=== PATIENT | female | born 1965 | race Caucasian/White ===

== ENCOUNTER → 2017-12-04 10:36 | Outpatient (CLI) | payer OTHER, SELFPAY ==
--- NOTE | 2017-12-04 | DI.MG.S_ITS ---
BILATERAL DIGITAL SCREENING MAMMOGRAM 3D/2D WITH CAD WITH AUGMENTATION: 12/04/2017 CLINICAL: Routine screening. Comparison is made to exams dated: 03/12/2011 mammogram and 04/29/2007 mammogram - [facility]. There are scattered fibroglandular elements in both breasts. Current study was also evaluated with a Computer Aided Detection (CAD) system. Bilateral breast implants appear stable and intact. No significant masses, calcifications, or other findings are seen in either breast. There has been no significant interval change. IMPRESSION: BENIGN There is no mammographic evidence of malignancy. A 1 year screening mammogram is recommended. This exam was interpreted at Station ID: [id number]. NOTE: For mammograms, a report in lay terms will be sent to the patient. Approximately 15% of breast malignancies will not be visualized mammographically. In the management of a palpable breast mass, a negative mammogram must not discourage biopsy of a clinically suspicious lesion. Electronically Signed By: Trevon Layne M.D. ecl/:12/04/2017 20:07:21 letter sent: Normal Exam ACR BI-RADS Category 2: Benign Finding(s) [id number]
== END ==
PROVIDERS: Family Provider Family Medicine; PCP Family Medicine; Visit Provider Family Medicine
DX: Z12.31 Encounter for screening mammogram for malignant neoplasm of breast (principal)
CPT/HCPCS: 77063; 77067

== ENCOUNTER → 2018-10-29 08:44 | Outpatient (CLI) | payer OTHER, SELFPAY ==
--- NOTE | 2018-10-29 | DI.US.S_ITS ---
PROCEDURE: US PELVIC COMPLETE INDICATIONS: ENLARGED LEFT OVARIAN CYST ON PHYSICAL EXAM TECHNIQUE: Real-time scanning was performed of the pelvic organs, with image documentation. Additional endovaginal scanning was necessary due to incomplete visualization of the adnexal and endometrial structures by transabdominal scanning. COMPARISON: [facility], US, PELVIC COMPLETE, 08/18/2017, 17:05. FINDINGS: Transabdominal scanning: Limited scanning through the kidneys shows no hydronephrosis. There is moderate amount of somewhat complex free pelvic fluid. Endovaginal scanning: Uterus: Uterus is retroverted measuring 7.6 x 4.7 x 5.3 cm. The endometrium appears heterogeneous and measures 8.2 mm in combined thickness. Ovaries: Right ovary measures 2.1 x 1.7 x 1.6 cm. Left ovary measures 3.1 x 1.5 x 1.73 m. A 1.3 cm simple cyst is noted in the right ovary. There is a 1.7 cm complex cyst in the left ovary. IMPRESSION: 1. Heterogeneous endometrium measuring 8.3 mm. Please correlate with the patient's menopausal status. 2. A 1.7 cm complex cyst in the left ovary. Recommend short-term followup ultrasound in 6 weeks. 3. Moderate amount of somewhat complex free fluid in pelvis. This can be better at that same time on followup ultrasound. Alternatively, CT may be obtained for further evaluation. Dictated by: Scar Rios M.D. on 10/29/2018 at 11:20 Approved by: Scar Rios M.D. on 10/29/2018 at 11:26
== END ==
PROVIDERS: PCP Family Medicine; Visit Provider Internal Medicine
DX: N83.292 Other ovarian cyst, left side (principal); N83.291 Other ovarian cyst, right side
CPT/HCPCS: 76830; 76856

== ENCOUNTER 2018-11-04 07:24 | Day surgery (SDC) | payer OTHER, SELFPAY ==
[2018-10-28 12:11] VITALS: BMI 27.6
[2018-11-04] VITALS (7 sets, daily range): BP systolic 103–120; BP diastolic 61–84; PULSE 80–90; RESP 13–18; TEMP 36.4–36.6; O2SAT 95–100; BMI 27.6
--- NOTE | 2018-11-04 08:10 | PM.PREOP ---
Pre-operative Note Interval Note History & Physical reviewed/Exam performed by Physician: Yes Changes to H&P: No
[2018-11-04] MEDS: LACTATED RINGERS 1,000 ML 42 ML IV ×2 (08:13→09:53)
--- NOTE | 2018-11-04 08:44 | SUR.PREOP ---
Block start time [0826 ] . Monitoring initiated and maintained throughout procedure. Oxygen and medications given per anesthesiologist instructions. Patient remained stable throughout procedure, no adverse reactions noted. Block end time [0833].
[2018-11-04] MEDS: MIDAZOLAM 2 MG/2 ML VIAL IV (08:49)
[2018-11-04] MEDS: fentaNYL 100 MCG/2 ML INJ 50 MCG IV (08:49)
[2018-11-04] MEDS: CEFAZOLIN 2 GM/100 ML FROZ.PIGGY IV (08:50)
--- NOTE | 2018-11-04 08:55 | SUR.PREOP ---
Pt was brought to Block room 5 for nerve block procedure. She was placed on monitor and noted to have stable vitals, HRR and in SR. Sats remained in the upper 90 percentile. Unfortunately no strip was obtained as aide inadvertently cleared the monitor before one could be obtained
--- NOTE | 2018-11-04 09:31 | SUR.OPER ---
Lateral on morales bag over padded OR bed, head on pillow, gel axillary roll in place, bottom leg bent with gel pad under knee to foot, upper leg straight and supported with blankets. Upper arm supported by pillows and secured over bottom arm to padded arm board. Safety belt at hip, tape over blanket lower legs.
[2018-11-04] MEDS: BUPIVACAINE 0.25% W/ EPI 30 ML VIAL INJ (10:43)
--- NOTE | 2018-11-04 11:33 | PM.OP.1 ---
Operative Date/Time/Diagnoses Date of procedure: 11/04/18 Time of procedure: 09:00 Pre-op diagnosis: Right ankle instability M25.371 Hypermobility ankle joint M35.7 Post-op diagnosis: other (1. Right ankle instability 2. Right ankle peroneus brevis tear 3. Peroneal tendinosis) Procedure & Clinicians Procedure: 1. Secondary repair collateral ankle ligaments, both, right CPT code 92166 2. Debridement and repair peroneus brevis tendon tear CPT code 25242 Indications: Patient is a 53-year-old female with chronic right ankle lateral ligament instability and marked subtalar inversion on stress examination under fluoroscopy. She has an absent calcaneal fibular ligament on MRI. She has been symptomatic and this has not resolved despite conservative treatment with bracing, anti-inflammatories, shoe modifications, physical therapy, time. She has hyperlaxity and an increased ligamentous of flexibility score. She has been indicated for secondary repair and reconstruction of the lateral ankle ligaments with allograft due to her hyperlaxity. The risks benefits and alternatives to the procedure were discussed with the patient including incomplete relief of pain, instability, infection, DVT, pulmonary embolism, slow wound healing, generalized dissatisfaction with the procedure, cardiopulmonary complications including stroke, paralysis, . The patient elected to proceed and consent was signed. Surgeon: Brigid Baig Director Of [employer]: Breann Vargas Anesthesia Type: General, Peripheral nerve block and Local Operative Notes Findings: The CFL was absent. Anterior talar fibular ligament was in tact was some attenuation. Peroneal tendon width were inspected. There is mild tenosynovitis around both the brevis and the longus. The longus was intact. The peroneus brevis was noted to have a backside tear and flattening. This was debrided and then tubularized. Tenosynovectomy was performed. The lateral ankle ligaments were reconstructed using the allograft tendon and fixed to the talus with a 4.75 interference screw and then through drill holes in the fibula and into the calcaneus with another 4.75 bio tenodesis screw. At the end of the procedure the patient was noted to have stable anterior drawer and talar tilt and markedly improved and talar tilt from preoperative. Closure Type: primary Specimen(s): none sent Prosthetic devices, grafts, tissues, transplants, or devices: allograft tendon measuring 4 mm x 21 cm Arthrex 4.75 bio tenodesis screws x2 Applied: catheter Estimated Blood Loss (mL): 5 Blood products transfused: none Tourniquet time (min): 69 Procedure in detail: The patient was seen in the preop holding area her site of surgery was confirmed and consent was again gone over in detail. All questions were answered. The site of surgery was marked. The patient was then taken to the block room and a preoperative block for postop pain control was placed by the anesthesia team. The patient was then brought to the operating room and general anesthesia was administered. Patient was then positioned in a lateral position on the beanbag. All bony prominences were padded. An SCD was was placed on the non operative leg. An axillary roll was placed. The patient's operative extremity was prepped and draped in the standard sterile fashion. A 3 step prep was performed with alcohol, Hibiclens sponge and then chlorhexidine prep. A formal time-out was performed confirming the patient, side, site of surgery, consent, administration of appropriate preoperative antibiotics. All were in agreement. An Esmarch was used and the tourniquet was elevated to 250 mm of mercury and stayed there for 69 minutes. A curvilinear incision was made just off the posterior border of the fibula curving anteriorly distally. The flaps were carefully elevated and an extra periosteal dissection was taken over the fibula distally. Peroneal tendon repair: The peroneal tendon sheath was opened just off the back of the fibula with a cuff left to repair. The tendons were inspected. The peroneus brevis had a flattened appearance with a backside longitudinal tear and some tenosynovitis. This was debrided using the tenotomy scissors and then repaired with a 2 0 Vicryl tubularizing stitch. Tenosynovectomy was completed. Lateral ligament reconstruction: Attention was then turned to the lateral ligaments. The ATFL was noted to be in tact anteriorly with is some thinning a anterior arthrotomy was made to inspect the joint. There was small amount of osteophytes off the distal tibia. The talar cartilage was noted to be intact. Next the CFL was inspected this was noted to be deficient and the patient had market positive talar tilt on manual visual examination. Due to the patient's global hyperlaxity allograft was felt to be needed for reconstruction. The allograft tendon was taken out of the freezer and thawed. This was 210 mm long and measured approximately 4 mm and a easily fighting through the 4 and 4.5 mm sizers. The insertion of the ATFL was identified on the talus just off the articular surface and this was just anterior and superior to the remaining anterior talofibular tendon that was left in situ. A guide pin was placed and checked on fluoroscopy to make sure that this was clear of the joint. This was then over drilled to 20 mm with a 5 mm drill. Next a fibular drill hole was made using 24.5 mm converging tunnels in the anterior to posterior direction at the insertions of the ATFL and CFL respectively. Again the ATFL tunnel was chosen just superior to the remaining ligament that was left in situ. The allograft tendon was then secured into the talus hole using a 4.75 bio tenodesis screw and then was brought through the fibular drill holes using the Nitinol loop. Once this was completed the calcaneal fibular ligament insertion on the calcaneus was identified and a guide pin was placed from lateral to medial and exited out medially. This was overdrilled with the 5 mm Reamer to the medial wall. The tendon was then marked where it would enter the calcaneal drill hole and then marked 17 mm distal to this. The tendon was then cut and a fiber loop was used for a whip stitch between the 2 marker wall. The allograft was then passed through the calcaneal hole and out medially on the Beath pin. The construct was then tensioned in neutral dorsiflexion and slight eversion and secured with another 4.75 bio tenodesis screw. This provided excellent fixation and eliminated the talar tilt laxity. The joint was then irrigated and the tourniquet released. Hemostasis was achieved. The extensor retinaculum was then repaired over the fibular periosteum and the joint was closed. The peroneal sheath was closed with 2 O Vicryl suture which was also used subcutaneously and then the subcu layer with 4 0 Monocryl in the skin with nylon 3 0. A sterile dressing was placed with Xeroform, gauze and Webril. A well-padded stirrup splint was placed. Additional 15 cc of 0.25% Marcaine with epinephrine was injected. The patient was then woken from anesthesia and taken to the recovery room in good condition. There no immediate complications from this procedure. Complications: none Condition: stable Disposition: PACU Plan for aftercare: The patient will be nonweightbearing in the lower extremity splint. She will keep this clean and dry until follow-up. She will start aspirin 325 mg b.i.d. on postop day 1. She will follow up in 2 weeks in the clinic at that time she will be placed to a boot and start 25% weight-bearing and physical therapy with no inversion.
== END 2018-11-04 12:24 | disposition home or self-care (01) ==
PROVIDERS: PCP Family Medicine; Visit Provider Orthopaedic Surgery Foot and Ankle Surgery
PROC: (CPT 27698; principal; 2018-11-04 08:45)
DX: M25.371 Other instability, right ankle (principal); M35.7 Hypermobility syndrome; S96.811A Strain of other specified muscles and tendons at ankle and foot level, right foot, initial encounter; G89.18 Other acute postprocedural pain
CPT/HCPCS: 27698; 27675; 64445; 64450; J0690; J1100; J2250; J2405; J2704; J3010

== ENCOUNTER → 2018-12-08 13:32 | Outpatient (CLI) | payer OTHER, SELFPAY ==
--- NOTE | 2018-12-08 | DI.US.S_ITS ---
PROCEDURE: US PELVIC COMPLETE INDICATIONS: LEFT OVARIAN CYST TECHNIQUE: Real-time scanning was performed of the pelvic organs, with image documentation. Additional endovaginal scanning was necessary due to incomplete visualization of the adnexal and endometrial structures by transabdominal scanning. COMPARISON: [facility], , PELVIC COMPLETE, 08/18/2017, 17:05. [facility], , PELVIC COMPLETE, 10/29/2018, 9:07. FINDINGS: Transabdominal scanning: Limited scanning through the kidneys shows no hydronephrosis. No pathologic free abdominal or pelvic fluid. Endovaginal scanning: Uterus: Uterus is normal in size at 6.6 x 5.2 x 4.1 cm. The endometrium measures 11.0 mm in combined thickness and is diffusely heterogeneous.. Ovaries: Ovaries normal size measuring 3.1 x 2.3 x 2.3 cm and the right and 3.7 x 2.7 x 1.4 cm and the left. 2 mildly complex cyst involving the right ovary, largest measuring up to 1.5 cm. 2 mildly complex cyst also mild left ovary, largest measuring up to 1.3 cm. IMPRESSION: Interval resolution of previously visualized left complex ovarian cyst and today's study demonstrating small bilateral complex ovarian cysts. Given the patient's postmenopausal status, short term followup ultrasound in 6-12 weeks is recommended. Thickened and heterogeneous appearance of the endometrial complex in this patient with prior endometrial ablation; however given the increased thickness, endometrial neoplastic process cannot be excluded and clinical correlation is recommended. Consider endometrial biopsy. Dictated by: Mukesh HANLEY Interpreted: Kindra Benito MD on 12/09/2018 at 8:36 Approved by: Kindra Benito MD, PhD on 12/09/2018 at 10:34
== END ==
PROVIDERS: PCP Family Medicine; Visit Provider Family Medicine
DX: N83.202 Unspecified ovarian cyst, left side (principal); N83.201 Unspecified ovarian cyst, right side; R93.89 Abnormal findings on diagnostic imaging of other specified body structures
CPT/HCPCS: 76830; 76856

== ENCOUNTER → 2019-10-26 07:22 | Outpatient (CLI) | payer OTHER, SELFPAY ==
[2019-10-26 09:04] LABS: Add Manual Diff / Slide Review NO; Basophils Absolute Auto 0 /uL (0-100); Basophils Percent Auto 0.5 % (0-2); Eosinophils Absolute Auto 100 /uL (0-450); Eosinophils Percent Auto 1.5 % (2-4); Hematocrit 41.1 % (36-46); Lymphocytes Absolute Auto 1200 /uL (1100-4500); Lymphocytes Percent Auto 28.8 % (25-40); Mean Corpuscular HGB Conc 34.1 % (30-36); Monocytes Absolute Auto 400 /uL (0-900); Neutrophils Absolute Auto 2600 /uL (1500-7000); Neutrophils Percent Auto 59.2 % (50-75); Platelet Count 329 X10^3/uL (150-400); Red Blood Cell Count 4.67 X10^6/uL (4.0-5.2); Red Cell Distribution Width 13.6 % (11.6-14.8); White Blood Cell Count 4.3 X10^3/uL (4.5-11.0)
[2019-10-26 09:22] LABS: Alanine Aminotransferase 23 IU/L (<35); Albumin 4.1 g/dL (3.5-5.0); Albumin Globulin Ratio 1.5 (1.0-2.8); Alkaline Phosphatase 89 U/L (38-126); Aspartate Aminotransferase 27 IU/L (14-36); BUN Creatinine Ratio 13.8 (6-22); Bilirubin Total 0.4 mg/dL (0.2-1.3); Blood Urea Nitrogen 9 mg/dL (7-17); Calcium 9.4 mg/dL (8.4-10.2); Carbon Dioxide 23 mmol/L (22-32); Chloride 105 mmol/L (98-107); Cholesterol 220 mg/dL (140-199); Estimated Glomerular Filt Rate > 60.0 mL/min (>60); Globulin 2.8 g/dL (1.7-4.1); Glucose 91 mg/dL (70-100); HDL Cholesterol 54 mg/dL (40-60); HEMOLYSIS < 15 (0-50); LDL Cholesterol Calculated 140 mg/dL (<100); Potassium 4.5 mmol/L (3.4-5.1); Sodium 137 mmol/L (137-145); Total Protein 6.9 g/dL (6.3-8.2); Triglycerides 130 mg/dL (35-150)
[2019-10-26 09:48] LABS: Thyroid Stimulating Hormone 1.51 uIU/mL (0.47-4.68)
== END ==
PROVIDERS: PCP Family Medicine; Referring Provider Naturopath; Visit Provider Naturopath
DX: Z00.00 Encounter for general adult medical examination without abnormal findings (principal); F41.9 Anxiety disorder, unspecified
CPT/HCPCS: 36415; 80053; 80061; 84443; 85025

== ENCOUNTER → 2019-11-12 13:23 | Outpatient (CLI) | payer OTHER, SELFPAY ==
--- NOTE | 2019-11-12 | DI.CT.S_ITS ---
PROCEDURE: CT ABDOMEN PELVIS WO/W CON INDICATIONS: Gross hematuria. Right flank and groin pain TECHNIQUE: Optional 5 mm thick noncontrast images acquired from the diaphragm to the symphysis pubis. After the administration of intravenous contrast, 5 mm thick images acquired from the diaphragm to the symphysis pubis after a 10-minute delay. 2 mm thick coronal and sagittal reformats were then performed of the kidneys and ureters. For radiation dose reduction, the following was used: automated exposure control, adjustment of mA and/or kV according to patient size. COMPARISON: None. FINDINGS: Image quality: Excellent. Lung bases: 5 mm right lung base nodule. Lung bases are otherwise clear. Heart size is normal. Urinary system: Both kidneys are normal in size, without hydronephrosis or nephrolithiasis on pre-contrast images. No perinephric fat stranding. There is normal bilateral renal enhancement. Renal calyces appear normal in morphology when filled with contrast. Opacified portions of both ureters demonstrate normal caliber. Bladder wall thickness is normal. No calcified bladder stones. Other solid organs: Liver is normal in size and enhancement. Gallbladder is surgically absent. Biliary system is non dilated. Pancreas enhances normally. Spleen is normal in size and enhancement. No adrenal nodules. Peritoneum and bowel: Bowel loops demonstrate normal wall thickness and caliber. No free fluid or air. Status post appendectomy. Nodes and vessels: No retroperitoneal or mesenteric adenopathy by size criteria. Aorta and inferior vena cava are normal in size. Abdominal wall: No ventral hernias. There is a very small fat-containing umbilical hernia without acute inflammation. Pelvis: No pathologic free pelvic fluid. No inguinal hernias or adenopathy. Reproductive organs appear unremarkable as visualized. Bones: No suspicious bony lesions. No vertebral body compression fractures. IMPRESSION: 1. CT abdomen and pelvis without acute abnormalities to explain patient's right-sided flank pain and hematuria. Specifically, no evidence for urolithiasis or obstructive uropathy and unremarkable appearance of the upper and lower urinary collecting system. 2. Status post cholecystectomy and appendectomy. Dictated by: Naveed Mcmahan M.D. on 11/12/2019 at 15:57 Approved by: Naveed Mcmahan M.D. on 11/12/2019 at 16:04
== END ==
PROVIDERS: PCP Family Medicine; Referring Provider Family Medicine; Visit Provider Family Medicine
DX: R31.0 Gross hematuria (principal); R10.9 Unspecified abdominal pain; R91.1 Solitary pulmonary nodule; Z90.49 Acquired absence of other specified parts of digestive tract
CPT/HCPCS: 74178; Q9967

== ENCOUNTER 2020-09-27 19:28 | Emergency (ER) | payer OTHER, SELFPAY ==
[2020-09-27 19:34] VITALS: BP 149/85; PULSE 88; RESP 20; O2SAT 100; BMI 31.3
--- NOTE | 2020-09-27 19:38 | DI.RAD.S_ITS ---
PROCEDURE: XR CHEST 1V INDICATIONS: chest pain TECHNIQUE: One view of the chest was acquired. COMPARISON: [facility], , CHEST 1 VIEW, 09/21/2014, 11:43. FINDINGS: Surgical changes and devices: None. Lungs and pleura: Lungs are clear. No pleural effusions or pneumothorax. Mediastinum: Mediastinal contours appear normal. Heart size is normal. Bones and chest wall: No suspicious bony lesions. Overlying soft tissues appear unremarkable. IMPRESSION: No acute process. Dictated by: Angelique Burns M.D. on 09/27/2020 at 20:10 Approved by: Angelique Burns M.D. on 09/27/2020 at 20:11
[2020-09-27 20:00] VITALS: BP 131/90; PULSE 87; RESP 24; O2SAT 99
[2020-09-27 20:08] LABS: Prothrombin Time 11.5 SECONDS (10.1-12.7)
[2020-09-27 20:11] LABS: PTT Partial Thromboplastin Tim 33 SECONDS (26.4-36.2)
[2020-09-27 20:13] LABS: Alanine Aminotransferase 21 IU/L (<35); Albumin 4.1 g/dL (3.5-5.0); Albumin Globulin Ratio 1.2 (1.0-2.8); Alkaline Phosphatase 114 U/L (38-126); Aspartate Aminotransferase 25 IU/L (14-36); BUN Creatinine Ratio 22.7 (6-22); Bilirubin Total 0.2 mg/dL (0.2-1.3); Blood Urea Nitrogen 15 mg/dL (7-17); Calcium 9.7 mg/dL (8.4-10.2); Carbon Dioxide 27 mmol/L (22-32); Chloride 104 mmol/L (98-107); Creatine Kinase 110 U/L (30-135); Estimated Glomerular Filt Rate > 60.0 mL/min (>60); Globulin 3.3 g/dL (1.7-4.1); Glucose 97 mg/dL (70-100); HEMOLYSIS < 15 (0-50); Lipase 114 U/L (23-300); Magnesium 2.3 mg/dL (1.6-2.3); Potassium 3.7 mmol/L (3.4-5.1); Sodium 138 mmol/L (137-145); Total Protein 7.4 g/dL (6.3-8.2)
[2020-09-27 20:19] LABS: Add Manual Diff / Slide Review NO; Basophils Absolute Auto 100 /uL (0-100); Basophils Percent Auto 0.7 % (0-2); Eosinophils Absolute Auto 100 /uL (0-450); Eosinophils Percent Auto 1.7 % (2-4); Hematocrit 39.7 % (36-46); Hemoglobin 13.4 g/dL (12.0-16.0); Lymphocytes Absolute Auto 2300 /uL (1100-4500); Lymphocytes Percent Auto 32.1 % (25-40); Mean Corpuscular HGB Conc 33.9 % (30-36); Mean Corpuscular Hemoglobin 29.1 PG (26-34); Mean Corpuscular Volume 85.8 fL (80-100); Monocytes Absolute Auto 600 /uL (0-900); Monocytes Percent Auto 8.7 % (3-14); Neutrophils Absolute Auto 4100 /uL (1500-7000); Neutrophils Percent Auto 56.8 % (50-75); Platelet Count 299 X10^3/uL (150-400); Red Blood Cell Count 4.62 X10^6/uL (4.0-5.2); Red Cell Distribution Width 14.1 % (11.6-14.8); White Blood Cell Count 7.3 X10^3/uL (4.5-11.0)
--- NOTE | 2020-09-27 20:20 | ED_ITS ---
HPI - Chest Pain General Chief Complaint: Chest Pain Stated Complaint: chest pain Time Seen by Provider: 09/27/20 20:07 Source: patient and family Mode of arrival: Ambulatory Limitations: no limitations History of Present Illness HPI narrative: This is a 55-year-old female comes with complaint of chest patient states she has a history of panic attack she states this feels somewhat similar to her prior panic attacks but also somewhat different. Today her symptoms started at noon she felt some left stabbing sensation on her chest. She took an aspirin which seemed helpful. Still squeezing and radiating towards her elbow. She states that she feels warmth in her chest still as well as some mild squeezing sensation. She states that her panic attacks will often have the squeezing sensation and the warmth. She denies fevers, she denies chills, she denies cold, cough or congestion. She felt mildly short of breath at times but not consistently. She denies any nausea or vomiting. No diaphoresis. She has noted that her bowel movements have been smaller in caliber she has also noticed a sweet odor in her urine. She denies any swelling in her extremities. She takes Lexapro, Wellbutrin and Vyvanse for panic attacks. She did stop her Lexapro for 2 weeks about a month to month and a half ago and had worsening in frequency of her panic attacks and has since restarted. She denies any prior surgeries. Only allergies are sulfa. No tobacco, alcohol or illicit. Past medical family history besides her issues for her grandmother and grandfather, no known cardiac, pulmonary or embolic history. She is not on any oral contraceptives. She has not had any long distance travel or sitting for long periods of time. Related Data Home Medications Medication Instructions Recorded Confirmed escitalopram oxalate [Lexapro] 10 mg PO QDAY #0 08/27/17 05/14/19 bupropion HCl [Wellbutrin XL] 300 mg PO QAM 09/12/17 05/14/19 Allergies Allergy/AdvReac Type Severity Reaction Status Date / Time Sulfa (Sulfonamide Allergy Mild Hives Verified 09/27/20 19:38 Antibiotics) codeine AdvReac Intermediate Nausea Verified 09/27/20 19:38 [From Tylenol-Codeine #3] Review of Systems Review of Systems ROS Unobtainable: All systems reviewed & are unremarkable except as noted in HPI and below Patient History Medical History Anxiety Depression Dysfunctional uterine bleeding History of endometrial biopsy History of hysteroscopy (~09/2017) Panic attacks Surgical History History of appendectomy History of breast augmentation History of cholecystectomy History of varicose vein ligation [place] teeth removed Social History household members: spouse Smoking Status: Never smoker alcohol intake: current Smoking Status: Never smoker Substance Use Type: does not use Exam Narrative Exam Narrative: GENERAL: Alert and oriented x three, well-nourished female in mild distress. HEENT: Head normocephalic, atraumatic, EOMI, pupils reactive, face symmetric, moist mucous membranes NECK: Supple, full range of motion CARDIOVASCULAR: Regular rate and rhythm without murmurs, rubs or gallops. Chest pain is not reproducible upon palpation. No swelling bilateral lower extremities. No JVD. RESPIRATORY: Breath sounds equal bilaterally, no wheezes rales or rhonchi. No tachypnea accessory muscle use. ABDOMEN: Soft, nontender. Normoactive bowel sounds all 4 quadrants. No guarding or rebound, rigidity, no mass : No CVA tenderness EXTREMITIES: Normal range of motion, no edema. Neurovascularly intact NEUROLOGICAL: Cranial nerves II through XII grossly intact. Moving all extremities SKIN: Warm, dry, no petechiae, no rashes or lesions. Initial Vital Signs Initial Vital Signs: Vital Signs Pulse Rate 88 09/27/20 19:34 Respiratory Rate 20 09/27/20 19:34 Blood Pressure 149/85 H 09/27/20 19:34 Pulse Oximetry 100 09/27/20 19:34 Scores HEART Score Heart Score history: Slightly Suspicious Heart Score EKG: Normal Heart Score Age: 45-64 years old Heart Score risk factors: No known risk factors Heart Score troponin: < or = to normal limit Heart Score Total: 1 Course Orders Ordered: ED Orders 09/27/20 19:30 EKG-12 Lead Stat 09/27/20 19:38 XR chest 1V Stat 09/27/20 19:55 Complete Blood Count AUTO DIFF Stat Comprehensive Metabolic Panel Stat Lipase Stat Magnesium Stat Partial Thromboplastin Time Stat Prothrombin Time INR Stat Troponin & CK Cardiac Panel Stat Vital Signs Vital signs: Vital Signs - 8 hr 09/27/20 19:34 09/27/20 20:00 09/27/20 20:30 Pulse Rate 88 87 86 Respiratory Rate 20 24 16 Blood Pressure 149/85 H 131/90 129/81 Pulse Oximetry 100 99 100 MDM - Chest Pain Lab Data Attestation: I reviewed the patient's lab results. Result diagrams: 09/27/20 19:55 09/27/20 19:55 Labs: Lab Results 09/27/20 09/27/20 09/27/20 Range/Units 19:55 19:55 19:55 WBC 7.3 (4.5-11.0) X10^3/uL RBC 4.62 (4.0-5.2) X10^6/uL Hgb 13.4 (12.0-16.0) g/dL Hct 39.7 (36-46) % MCV 85.8 (80-100) fL MCH 29.1 (26-34) PG MCHC 33.9 (30-36) % RDW 14.1 (11.6-14.8) % Plt Count 299 (150-400) X10^3/uL Neut % (Auto) 56.8 (50-75) % Lymph % (Auto) 32.1 (25-40) % [place] % (Auto) 8.7 (3-14) % Eos % (Auto) 1.7 L (2-4) % Baso % (Auto) 0.7 (0-2) % Neut # (Auto) 4100 (6005-2628) /uL Lymph # (Auto) 2300 (9582-3964) /uL [place] # (Auto) 600 (0-900) /uL Eos # (Auto) 100 (0-450) /uL Baso # (Auto) 100 (0-100) /uL PT 11.5 (10.1-12.7) SECONDS INR 1.0 (0.9-1.3) APTT 33 (26.4-36.2) SECONDS Sodium 138 (137-145) mmol/L Potassium 3.7 (3.4-5.1) mmol/L Chloride 104 (98-107) mmol/L Carbon Dioxide 27 (22-32) mmol/L BUN 15 (7-17) mg/dL Creatinine 0.66 (0.52-1.04) mg/dL Estimated GFR > 60.0 (>60) mL/min BUN/Creatinine Ratio 22.7 H (6-22) Glucose 97 (70-100) mg/dL Calcium 9.7 (8.4-10.2) mg/dL Magnesium 2.3 (1.6-2.3) mg/dL Total Bilirubin 0.2 (0.2-1.3) mg/dL AST 25 (14-36) IU/L ALT 21 (<35) IU/L Alkaline Phosphatase 114 (38-126) U/L Total Creatine Kinase 110 (30-135) U/L CK-MB (CK-2) 0.71 (<2.37) ng/mL CK-MB (CK-2) Rel Index 0.6 L (1.5-5.0) % Troponin I < 0.012 (0.01-0.034) ng/mL Total Protein 7.4 (6.3-8.2) g/dL Albumin 4.1 (3.5-5.0) g/dL Globulin 3.3 (1.7-4.1) g/dL Albumin/Globulin Ratio 1.2 (1.0-2.8) Lipase 114 (23-300) U/L Imaging Data Chest x-ray: Radiologist's Impression: Bridget Olmedo 55 F [address] [id number] ReportSigned Patient: Bridget Olmedo MMR#: [id number]: 1965Acct:[id number]/Sex: 55 / FDate of Service: 09/27/20Loc: EDAccession Number: [id number] Procedure: XR chest 1V Ordering Provider: Devi Hamilton D.O. PROCEDURE: XR CHEST 1V INDICATIONS: chest pain TECHNIQUE: One view of the chest was acquired. COMPARISON: [facility], , CHEST 1 VIEW, 09/21/2014, 11:43. FINDINGS: Surgical changes and devices: None. Lungs and pleura: Lungs are clear. No pleural effusions or pneumothorax. Mediastinum: Mediastinal contours appear normal. Heart size is normal. Bones and chest wall: No suspicious bony lesions. Overlying soft tissues appear unremarkable. IMPRESSION: No acute process. Dictated by: Angelique Burns M.D. on 09/27/2020 at 20:10 Approved by: Angelique Burns M.D. on 09/27/2020 at 20:11 ECG Data Attestation: I personally reviewed and interpreted this ECG as follows: Prior ECG tracings: available for review Interpretation: Sinus rhythm rate 85 KS 164 QRS 84 and QTC of [address] elevation or depression. Patient has prior EKG from 09/21/2014 which appears similar. MDM Narrative Medical decision making narrative: This is a 55-year-old female comes with complaint of left-sided chest pain that started at noon today. She arrived almost 8 hours later and has a negative troponin with no acute EKG changes with a prior EKG from 2014 which appears similar. Chest x-ray is negative for any acute changes. Labs do not show any major abnormalities. Troponin is negative. Based on time frame with lack of EKG changes discussed with patient she is less likely to be having an acute coronary event but cannot rule cardiac cause of her chest discomfort. Patient does not wish to be kept overnight for observation and discussed she can contact her primary care 1st thing in the morning and they can set up the stress testing shortly. Patient was encouraged to return if she has any new or worsening symptoms. Discharge Plan Departure Patient Disposition: Home Clinical Impression: Chest pain Instructions: DI for Chest Pain Activity Restrictions/Additional Instructions: Follow-up with Dr. Kern for recheck and to discuss stress testing. Call in the morning. You may continue home medications as prescribed. Return for new or worsening symptoms, lightheadedness or passing out, new or persistent chest pain or pressure, shortness of breath, diaphoresis, persistent nausea or vomiting, new swelling in her extremities or other new or concerning symptoms. Prescriptions: No Action escitalopram oxalate [Lexapro] 10 MG tablet 10 mg PO QDAY Qty: 0 RF: 0 bupropion HCl [Wellbutrin XL] 300 mg Tablet Extended Release 24 Hr 300 mg PO QAM RF: 0 Referrals: Rg Kern MD [Primary Care Provider] -
[2020-09-27 20:25] LABS: Troponin I < 0.012 ng/mL (0.01-0.034)
[2020-09-27 20:29] LABS: CKMB % Relative Index 0.6 % (1.5-5.0); Creatine Kinase MB 0.71 ng/mL (<2.37)
[2020-09-27 20:30] VITALS: BP 129/81; PULSE 86; RESP 16; O2SAT 100
== END 2020-09-27 20:59 | disposition home or self-care (01) ==
PROVIDERS: Emergency Provider Emergency Medicine; PCP Family Medicine
DX: R07.9 Chest pain, unspecified (principal)
CPT/HCPCS: 36415; 71045; 80053; 82550; 82553; 83690; 83735; 84484; 85025; 85610; 85730; 93005; 99284

== ENCOUNTER → 2020-11-22 11:03 | Outpatient (CLI) | payer OTHER, SELFPAY ==
--- NOTE | 2020-11-22 | DI.RAD.S_ITS ---
PROCEDURE: XR KNEE RT 3V INDICATIONS: RIGHT KNEE PAIN TECHNIQUE: 3 views of the knee were acquired. COMPARISON: None. FINDINGS: Bones: No fractures or dislocations. There is mild tricompartmental osteoarthritis. No suspicious bony lesions. Soft tissues: No joint effusion. Small calcifications are noted in posterior aspect of right femoral tibial compartment concerning for small loose bodies. IMPRESSION: No right knee fracture or dislocation. Mild tricompartmental osteoarthritis. Possible small loose bodies in posterior and lateral aspect of right knee joint. No significant joint effusion. Dictated by: Richard Morrell M.D. on 11/22/2020 at 11:51 Approved by: Richard Morrell M.D. on 11/22/2020 at 11:52
== END ==
PROVIDERS: PCP Family Medicine; Referring Provider Family Medicine; Visit Provider Family Medicine
DX: M25.561 Pain in right knee (principal); M17.11 Unilateral primary osteoarthritis, right knee
CPT/HCPCS: 73562

== ENCOUNTER → 2020-11-29 13:43 | Outpatient (CLI) | payer OTHER, SELFPAY ==
--- NOTE | 2020-11-29 13:58 | DI.MRI.S_ITS ---
PROCEDURE: MR KNEE RT WO CON INDICATIONS: Pain in right knee TECHNIQUE: Noncontrast sagittal PD fast spin echo and T2 fast spin echo with fat saturation, sagittal 3-D FLASH with fat saturation; coronal T1 spin echo and PD fast spin echo with fat saturation, and axial PD fast spin echo with fat saturation through the knee. COMPARISON: [facility], CR, XR KNEE RT 3V, 11/22/2020, 11:11. FINDINGS: Menisci: Medial meniscus: Tear involving the free margin of the posterior horn and posterior root. Ill-defined tear of the anterior horn with abnormal signal extending to the superior articular surface. Slight partial extrusion of the medial meniscus. Lateral meniscus: Intact. Cruciate ligaments: Anterior cruciate ligament: Intact. Posterior cruciate ligament: Intact. Medial structures: The medial collateral ligament: Intact. Semimembranosus tendon: Intact. Visualized pes anserinus tendons: Intact. Bursal fluid: none. Lateral structures: The lateral collateral ligament intact. Biceps femoris tendon appears intact. Popliteus tendon grossly unremarkable. Iliotibial band appears intact. Anterior structures: Quadriceps tendon: Intact. Medial patellofemoral ligament: Mild irregularity of the medial patellofemoral ligament although appears grossly intact. This could reflect chronic partial rupture/sprain. Lateral patellofemoral ligament: Intact. Patellar tendon: Mild tendinopathy. Anterior soft tissues: Prepatellar and superficial infrapatellar subcutaneous edema/fluid. Deep infrapatellar region: Mild fluid suggestive of low-grade bursitis. Bones and cartilage: Marrow: No focal marrow contusion or discrete low signal fracture line. Medial compartment: Low-grade diffuse partial-thickness of femoral cartilage loss. Lateral compartment: Intrasubstance signal changes involving the central weight-bearing tibial cartilage. Patellofemoral compartment: Diffuse partial-thickness loss of the patellar cartilage. Low-grade surface fraying of the posterior medial femoral condyle cartilage. Joint space: Effusion: No pathologic knee joint effusion. Popliteal fossa: Bowers's cyst is noted measuring approximately 4 cm in the cephalocaudal dimension. Loose bodies: None. IMPRESSION: Ill-defined tear involving the posterior horn and root of the medial meniscus as well as the anterior horn as detailed above with slight partial extrusion. Chronic appearing partial rupture versus low-grade sprain of the medial patellofemoral ligament. Mild patellar tendinopathy Mild degenerative joint disease as above. Bowers's cyst. Dictated by: Wade Senior M.D. on 11/29/2020 at 16:30 Approved by: Wade Senior M.D. on 11/29/2020 at 16:37
== END ==
PROVIDERS: PCP Family Medicine; Referring Provider Family Medicine; Visit Provider Family Medicine
DX: M25.561 Pain in right knee (principal); S83.241A Other tear of medial meniscus, current injury, right knee, initial encounter; M17.11 Unilateral primary osteoarthritis, right knee; M71.21 Synovial cyst of popliteal space [Baker], right knee
CPT/HCPCS: 73721

== ENCOUNTER → 2020-12-19 14:00 | Outpatient (CLI) | payer OTHER, SELFPAY ==
--- NOTE | 2020-12-19 14:03 | DI.US.S_ITS ---
PROCEDURE: US PELVIC COMPLETE INDICATIONS: PAIN TECHNIQUE: Real-time scanning was performed of the pelvic organs, with image documentation. Additional endovaginal scanning was necessary due to incomplete visualization of the adnexal and endometrial structures by transabdominal scanning. COMPARISON: [facility], US, US PELVIC COMPLETE, 05/14/2019, 11:47. FINDINGS: Uterus: Uterus is normal in size at 5.9 x 3.9 x 4.9 cm. The endometrium measures 6.6 mm in combined thickness. Ovaries: Simple cyst associated with the right ovary measuring 15 mm; otherwise the ovaries are normal bilaterally. Other: No pathologic free abdominal or pelvic fluid. IMPRESSION: Simple right ovarian cyst measuring 15 mm. Dictated by: Mukesh Chaney [facility] Interpreted: Bradley Nuñez MD on 12/19/2020 at 15:22 Transcribed by: JUDITH on 12/19/2020 at 15:23 Approved by: Lm Argueta M.D. on 12/20/2020 at 13:36
== END ==
PROVIDERS: PCP Family Medicine; Referring Provider Obstetrics & Gynecology; Visit Provider Obstetrics & Gynecology
DX: R10.2 Pelvic and perineal pain (principal); N83.291 Other ovarian cyst, right side
CPT/HCPCS: 76830; 76856

== ENCOUNTER → 2021-03-05 16:22 | Outpatient (CLI) | payer OTHER, SELFPAY ==
[2021-03-05 17:01] LABS: COVID19 -Nasal RAPID Negative (Negative)
== END ==
PROVIDERS: PCP Family Medicine; Visit Provider Obstetrics & Gynecology
DX: Z20.822 Contact with and (suspected) exposure to COVID-19 (principal); Z01.812 Encounter for preprocedural laboratory examination
CPT/HCPCS: 87635

== ENCOUNTER 2021-03-06 09:19 | Day surgery (SDC) | payer OTHER, SELFPAY ==
[2021-03-05 08:31] VITALS: BMI 31.9
[2021-03-06] VITALS (7 sets, daily range): BP systolic 116–132; BP diastolic 66–82; PULSE 59–75; RESP 9–16; TEMP 36.3–36.7; O2SAT 94–98; BMI 31.3
--- NOTE | 2021-03-06 | PATH_ITS ---
[facility] Accession Number: [id number] . 01 Material submitted: . fallopian tube - BILATERAL FALLOPIAN TUBES . 01 Clinical history: . SDC . 02 Diagnosis: Bilateral Fallopian Tubes, Bilateral Salpingectomy: Fallopian tubes x2 with benign inclusion cysts (1-2 mm); negative for atypia or malignancy. MRV 03/12/2021 1123 Local . 02 Electronically signed: . Brenda Gudino MD, Pathologist NPI- [id number] . 01 Gross description: . Received in formalin labeled with the patient's name and bilateral fallopian tubes are two unoriented segments of fallopian tube measuring 4.0 cm in length x 0.4 cm in diameter and 5.8 cm in length x 0.5 cm in diameter. Fimbriated ends are present on both tubes. [employer] Clerk [employer] cross sections and fimbriated ends are submitted in cassette A1. A2-A6: Remainder of fallopian tubes, to include fimbria. (TAMI:cmc80 [id number]) (EA:cmc10 [id number]) /[facility] 03/09/2021 1106 Local . 02 Pathologist provided ICD-10: Z30.2 . 02 CPT . 108942 Performed at: 01 [facility] [address], [place], [place] [id number] MD Neville Torres MD Phone: [phone] Performed at: 02 [facility] [address] [place], [place] [id number] MD Laura Gomez MD Phone: [phone]
[2021-03-06] MEDS: LACTATED RINGERS 1,000 ML 100 ML IV (09:56)
--- NOTE | 2021-03-06 11:37 | P.HP_ITS ---
History of Present Illness History of Present Illness Date Patient Seen: 03/06/21 Time Patient Seen: 11:37 Chief complaint: SDC Narrative: Patient is a 56-year-old 1 para 1 who presents for a diagnostic laparoscopy with possible excision of ovarian cyst or lysis of adhesions. Bilateral salpingectomy. Dilation of lower uterine segment and cervix All of this is being done due to pelvic pain. Patient History Medical History (Updated 03/06/21 @ 10:02 by Benny Mc RN) ADHD Anxiety Arthritis of knee Depression Dysfunctional uterine bleeding History of endometrial biopsy Panic attacks Surgical History History of ankle surgery (11/04/18) History of appendectomy History of breast augmentation History of cholecystectomy History of hysteroscopy (~09/2017) History of varicose vein ligation Status post endometrial ablation Status post endometrial ablation [place] teeth removed Family & Social History Social History: household members spouse Tobacco & Substance use: Smoking Status Never smoker alcohol intake current alcohol intake frequency holiday/special occasion Substance Use Type does not use Meds Home Medications and Allergies Home Medications Medication Instructions Recorded Confirmed Type bupropion HCl 300 mg 24 hr tablet, 300 mg PO QAM 09/12/17 03/06/21 History extended release (Wellbutrin XL) fluoxetine 10 mg tablet 10 mg PO DAILY 01/24/21 03/06/21 History etodolac 400 mg tablet 400 mg PO PRN PRN 03/06/21 03/06/21 History lisdexamfetamine 20 mg capsule 20 mg PO DAILY 03/06/21 03/06/21 History (Vyvanse) Allergies Allergy/AdvReac Type Severity Reaction Status Date / Time Sulfa (Sulfonamide Allergy Mild Hives Verified 03/06/21 09:13 Antibiotics) codeine AdvReac Intermediate Nausea Verified 03/06/21 09:13 [From Tylenol-Codeine #3] Exam Narrative Exam Narrative: HEENT: No thyromegaly, no anterior cervical or supraclavicular lymphadenopathy. Lungs:Clear to auscultation bilaterally, no wheezes. Cardiovascular: Regular rate and rhythm, no murmurs, rubs, or gallops. Abdomen: Well-healed laparoscopy scars. No hepatosplenomegaly. No masses pal pable. External genitalia: Normal Vagina: Normal Cervix: Normal Bimanual exam: 7 Week size anteverted uterus. Mobile. Rectal: No masses Assessment & Plan Assessment & Plan narrative: Assessment: 56-year-old 1 para 1 with pelvic pain and ovarian cysts , status post endometrial ablation Plan: Laparoscopic bilateral salpingectomy, possible removal of ovarian cyst, possible lysis of adhesions, dilation lower uterine segment and cervix. The risks, benefits, and alternatives to the procedure were explained to the patient. The risks including bleeding, infection, injury to the bowel, bladder, ureters, or uterine perforation. She understands these risks and agrees to proceed. A full par Q was held and consent form was signed. Time Spent With Patient Critical Care time: I spent a total of [] minutes of critical care time on this patient's care today; this time is exclusive of procedural time.
--- NOTE | 2021-03-06 11:37 | PM.GYNOP.1 ---
Operative Date/Time/Diagnoses Date of procedure: 03/06/21 Time of procedure: 12:40 Pre-op diagnosis: Pelvic pain Pelvic adhesions Left ovarian cyst Post-op diagnosis: same Procedure & Clinicians Procedure: Procedures Operation Date: 03/06/21 10:45 <No data on this case meets the specified criteria> Indications: Pelvic pain Pelvic adhesions Left ovarian cyst Surgeon: Pam Delgado Anesthesia Type: General and Local Operative Notes Findings: 6 week size anteverted uterus 1.5 cm left ovarian cyst Normal tubes bilaterally Adhesions in the left adnexal area Normal liver Surgical clip attached to the left ovary Closure Type: primary Specimen(s): left tube and right tube Estimated blood loss (mL): 5 Blood products transfused: none Procedure in detail: After informed consent was obtained, the patient was taken to the operating room where she was placed in the dorsal supine position. After adequate general endotracheal anesthesia was achieved, she was placed in the dorsal lithotomy position, and prepped and draped in the usual sterile fashion. A time-out was performed. A bivalve speculum was placed into the vagina and the anterior lip of the cervix was grasped with a single-tooth tenaculum. The cervical os was sequentially dilated until the Zumi uterine manipulator could pass easily into the endometrial cavity. The single-tooth tenaculum was removed from the anterior lip of the cervix. The bivalve speculum was removed from the vagina. Attention was then turned to the abdomen where 6 cc of 0.5% Marcaine with epinephrine were injected in the umbilical fold. A 5 mm incision was made. Veress needle was placed into the peritoneal cavity, and its placement confirmed by aspiration drop test. The abdominal cavity was insufflated with 3.4 L of CO2. The Veress needle was removed, and a 5 mm trocar was placed without difficulty. Initial inspection of the pelvis and abdomen revealed the findings noted above. Two other 5 mm incisions were made 4 cm lateral to the midline at the level of the umbilicus after 6 cc of 0.5% Marcaine with epinephrine were injected. Two 5 mm trocars were placed under direct visualization. The right tube was grasped with an atraumatic grasper. Using the PlasmaKinetic was settings of 40 w, the mesosalpinx on the right side was cauterized and cut all the way down to the cornua of the uterus. The tube was amputated at the cornua. The tube was removed through the left 5 mm trocar. This was repeated on the patient's left tube. There were some adhesions in the left adnexa with the bowel attached to the sidewall and these were taken down with the Endo Magdi. The left ovary had a 1.5 cm simple cyst. This was aspirated and then the area of the cyst cauterized with the PlasmaKinetic for hemostasis. There was a small clip from a previous surgery stuck to the left ovary and this was removed. The appendix had previously been removed. The gallbladder had previously been removed. The remainder of the pelvis was inspected and there were no adhesions. The instruments were removed from the abdomen. The CO2 was allowed to escape. The incisions were repaired with 4-0 Monocryl in a subcuticular fashion. Steri-Strips and Allevyn dressings were placed. The Zumi uterine manipulator was removed from the uterus. Sponge, lap, and instrument counts were correct x2. The patient tolerated the procedure well, and was taken to PACU in stable condition. Complications: none Post-operative Condition: stable Disposition: PACU Plan for aftercare: Home after recovery
--- NOTE | 2021-03-06 11:38 | SUR.OPER ---
Lithotomy on padded OR bed, head on pillow, arms secured on padded arm boards at <90 degrees abduction. Legs secured in padded yellow fins stirrups.
--- NOTE | 2021-03-06 11:44 | PM.PREOP ---
Pre-operative Note COVID-19 COVID-19 status: Negative Result date/Date tested (Pos, Neg/Pending): 03/05/21 Interval Note History & Physical reviewed/Exam performed by Physician: Yes Changes to H&P: No H&P completed within 30 days and has changed as indicated here:: 03/06/21
[2021-03-06] MEDS: BUPIVACAINE 0.5% (PF) 30 ML, EPINEPHrine 0.15 MG INJ (12:12)
[2021-03-06] MEDS: LACTATED RINGERS 1,000 ML 42 ML IV (13:13)
[2021-03-06] MEDS: ONDANSETRON 4 MG/2 ML INJ IV (13:20)
[2021-03-06] MEDS: TRAMADOL 50 MG TABLET PO (14:08)
== END 2021-03-06 15:07 | disposition home or self-care (01) ==
PROVIDERS: PCP Family Medicine; Referring Provider Obstetrics & Gynecology; Visit Provider Obstetrics & Gynecology
PROC: (CPT 58661; principal; 2021-03-06 10:45)
DX: R10.2 Pelvic and perineal pain (principal); N73.6 Female pelvic peritoneal adhesions (postinfective); N83.292 Other ovarian cyst, left side; F41.9 Anxiety disorder, unspecified; F32.9 Major depressive disorder, single episode, unspecified; E66.9 Obesity, unspecified; N83.8 Other noninflammatory disorders of ovary, fallopian tube and broad ligament
CPT/HCPCS: 58661; 49322; J0171; J1100; J2250; J2405; J3010

== ENCOUNTER 2021-07-11 14:20 | Emergency (ER) | payer OTHER, SELFPAY ==
[2021-07-11 14:24] VITALS: BP 122/89; PULSE 98; RESP 16; TEMP 36.7; O2SAT 98; BMI 30.5
--- NOTE | 2021-07-11 14:28 | DI.RAD.S_ITS ---
PROCEDURE: XR HAND RT MIN 3V INDICATIONS: fall. Right hand pain and bruising TECHNIQUE: 3 views of the hand(s) acquired. COMPARISON: None. FINDINGS: Bones: No fractures or dislocations. Moderate to severe 1st CMC joint osteoarthritic changes are seen. Mild osteoarthritic changes are noted throughout rest of the right hand and wrist joints. Carpal bones are normally aligned. No suspicious bony lesions. Soft tissues: No suspicious soft tissue calcifications. IMPRESSION: No gross acute right hand fracture or dislocation. Moderate to severe 1st CMC joint osteoarthritis and [id number] osteoarthritis throughout rest of the right hand and wrist joints. Dictated by: Richard Morrell M.D. on 07/11/2021 at 14:59 Approved by: Richard Morrell M.D. on 07/11/2021 at 15:00
--- NOTE | 2021-07-11 15:37 | DI.RAD.S_ITS ---
PROCEDURE: XR KNEE LT 3V INDICATIONS: fall on left knee TECHNIQUE: 3 views of the knee were acquired. COMPARISON: [facility], CR, XR KNEE RT 3V, 11/22/2020, 11:11. FINDINGS: Bones: No fractures or dislocations. No suspicious bony lesions. Soft tissues: No joint effusion. No suspicious soft tissue calcifications. IMPRESSION: Intact left knee. Dictated by: Juanita Alva M.D. on 07/11/2021 at 16:04 Approved by: Juanita Alva M.D. on 07/11/2021 at 16:05
--- NOTE | 2021-07-11 15:39 | ED.UPPEXIN ---
HPI - Extremity Injury (Upper) <CARITO Umnazor - Last Filed: 07/11/21 16:26> General Chief Complaint: Extremity Injury, Upper Stated Complaint: Fell and landed on Rt hand Time Seen by Provider: 07/11/21 15:28 Source: patient Mode of arrival: Ambulatory History of Present Illness HPI narrative: 56-year-old female presents to the emergency department for left knee and right hand pain after she tripped on a curb while walking her dog this morning and fell forward onto her left knee and right hand. Patient does remember when her last tetanus vaccination is, she is able to bear weight and ambulate although it is painful, she has ecchymosis and an abrasion to her left knee, her right hand does not have an open wound, it is painful at the base of the 5th metacarpal, with palmar ecchymosis. Patient took 600 mg of ibuprofen prior to arrival, she iced her left knee for 2 hours this morning. She denies any anticoagulant use. She patient denies any pre-existing injury of these areas. She denies any sensation changes, range of motion deficit, or deformity. Handedness: right Related Data Home Medications Medication Instructions Recorded Confirmed bupropion HCl 300 mg 24 hr tablet, 300 mg PO QAM 09/12/17 03/22/21 extended release (Wellbutrin XL) fluoxetine 10 mg tablet 10 mg PO DAILY 01/24/21 03/22/21 etodolac 400 mg tablet 400 mg PO PRN PRN 03/06/21 03/22/21 lisdexamfetamine 20 mg capsule 20 mg PO DAILY 03/06/21 03/22/21 (Vyvanse) Previous Rx's Medication Instructions Recorded tramadol 50 mg tablet 50 mg PO Q4H PRN #20 tab 03/06/21 diclofenac sodium 1 % topical gel 4 g TOPICAL QID PRN #100 g 07/11/21 (Voltaren Arthritis Pain) tramadol 50 mg tablet 50 mg PO DAILY PRN #10 tab 07/11/21 Allergies Allergy/AdvReac Type Severity Reaction Status Date / Time Sulfa (Sulfonamide Allergy Mild Hives Verified 07/11/21 14:27 Antibiotics) codeine AdvReac Intermediate Nausea Verified 07/11/21 14:27 [From Tylenol-Codeine #3] Review of Systems <CARITO Umanzor - Last Filed: 07/11/21 16:26> Review of Systems Narrative: General: denies fever, chills, malaise, sweats, fatigue Head/Neck: denies headache, neck pain, dizziness Eyes: denies visual changes, eye pain Cardio: denies chest pain, palpitations, edema Respiratory: denies dyspnea, cough, orthopnea GI: denies abdominal pain, nausea, vomiting, or diarrhea : denies dysuria, hematuria, urinary retention, frequency or incontinence MSK: Left knee pain, right hand pain Skin: denies rash, itching, skin lesions or other Neuro: denies numbness, tingling Patient History <CARITO Umanzor - Last Filed: 07/11/21 16:26> Medical History ADHD Anxiety Arthritis of knee Depression Dysfunctional uterine bleeding History of endometrial biopsy Panic attacks Surgical History History of ankle surgery (11/04/18) History of appendectomy History of breast augmentation History of cholecystectomy History of hysteroscopy (~09/2017) History of varicose vein ligation Status post endometrial ablation Status post endometrial ablation [place] teeth removed Social History household members: spouse Smoking Status: Never smoker alcohol intake: current Smoking Status: Never smoker alcohol intake frequency: holidays/special occasions only Substance Use Type: does not use Exam <CARITO Umanzor - Last Filed: 07/11/21 16:26> Narrative Exam Narrative: Independently reviewed vitals signs and nursing notes. General: Cooperative, comfortable, in no acute distress, well developed and well groomed Head/Neck: Normal visual inspection and supple, atraumatic, no JVD or lymphadenopathy. Normal facial exam Eyes: Pupils equal round and reactive, EOMI, conjunctiva normal, no scleral icterus or injections Nose: External nose normal, nares patent, no rhinorrhea, without purulent drainage Mouth/Throat: uvula midline, moist mucus membranes Cardio: Regular rate and rhythm, no peripheral edema, warm extremities Respiratory: Normal respiratory effort, able to speak in complete sentences without audible wheezing, stridor, or rales. No retractions. GI: Abdomen soft, nontender to palpation x4 quadrants, nondistended, no masses or exquisite tenderness with exam, no flank tenderness MSK: Moves all extremities, neurovascularly intact, left knee exam: Naomy's test with full stop point, no varus or valgus laxity, mild edema with ecchymosis, tenderness on medial aspect, patella tenderness to palpation mostly on the medial aspect, tenderness over MCL, no tenderness over LCL. Ecchymosis to left knee and palmar aspect of right hand at the base of her 5th metacarpal, palpation of 5th metacarpal is nontender, tissue on the palmar aspect tender to palpation without any deformities or range of motion deficits. Cap refill less than 2 seconds, extremities warm Skin: Normal capillary refill, abrasion to left knee Neuro: Normal speech and cognition, normal gait, A&O x3, tone normal, moves all extremities Psych: Mental status is grossly normal, speech is clear, congruent mood, normal affect Initial Vital Signs Initial Vital Signs: Vital Signs Temperature 98.0 F 07/11/21 14:24 Pulse Rate 98 H 07/11/21 14:24 Respiratory Rate 16 07/11/21 14:24 Blood Pressure 122/89 07/11/21 14:24 Pulse Oximetry 98 07/11/21 14:24 <Deborah Urbina DO - Last Filed: 07/12/21 07:01> Initial Vital Signs Initial Vital Signs: Vital Signs Temperature 98.0 F 07/11/21 14:24 Pulse Rate 98 H 07/11/21 14:24 Respiratory Rate 16 07/11/21 14:24 Blood Pressure 122/89 07/11/21 14:24 Pulse Oximetry 98 07/11/21 14:24 Course <CARITO Umanzor - Last Filed: 07/11/21 16:26> Orders Ordered: Discontinued Medications Acetaminophen (Acetaminophen 325 Mg Tablet) 975 mg PO NOW ONE Stop: 07/11/21 15:39 Last Admin: 07/11/21 15:50 Dose: 975 mg Documented by: RENÉES Diphtheria/Tetanus/Acell Pertussis (Tet,Diph,Pertuss(Acell),Vac/Pf 0.5 Ml Syringe) 0.5 ml IM .ONCE ONE Stop: 07/11/21 15:40 Last Admin: 07/11/21 15:50 Dose: 0.5 ml Documented by: SHARON Vital Signs Vital signs: Vital Signs - 8 hr 07/11/21 14:24 07/11/21 16:06 07/11/21 16:07 Temperature 98.0 F Pulse Rate 98 H 75 80 Respiratory Rate 16 Blood Pressure 122/89 113/71 Pulse Oximetry 98 98 98 <Deborah Urbina DO - Last Filed: 07/12/21 07:01> Orders Ordered: Discontinued Medications Acetaminophen (Acetaminophen 325 Mg Tablet) 975 mg PO NOW ONE Stop: 07/11/21 15:39 Last Admin: 07/11/21 15:50 Dose: 975 mg Documented by: SHARON Diphtheria/Tetanus/Acell Pertussis (Tet,Diph,Pertuss(Acell),Vac/Pf 0.5 Ml Syringe) 0.5 ml IM .ONCE ONE Stop: 07/11/21 15:40 Last Admin: 07/11/21 15:50 Dose: 0.5 ml Documented by: SHARON Vital Signs Vital signs: Vital Signs - 8 hr 07/11/21 14:24 07/11/21 16:06 07/11/21 16:07 Temperature 98.0 F Pulse Rate 98 H 75 80 Respiratory Rate 16 Blood Pressure 122/89 113/71 Pulse Oximetry 98 98 98 MDM - Extremity Injury (Upper) <TRAN UmanzorP - Last Filed: 07/11/21 16:26> Imaging Data Extremity x-ray #1: Radiologist's Impression: PROCEDURE:? XR HAND RT MIN 3V ? INDICATIONS:? fall. Right hand pain and bruising ? TECHNIQUE:? 3 views of the hand(s) acquired.? ? COMPARISON:? None. ? ? Bones:? No fractures or dislocations.? Moderate to severe 1st CMC joint osteoarthritis changes are seen.? Mild osteoarthritic changes are noted throughout rest of the right hand and wrist joints.? Carpal bones are normally aligned.? No suspicious bony lesions.? ? Soft tissues:? No suspicious soft tissue calcifications.? ? ? IMPRESSION:? No gross acute right hand fracture or dislocation.? Moderate to severe 1st CMC joint osteoarthritis and [id number] osteoarthritis throughout rest of the right hand and wrist joints.? ? ? Dictated by: Richard Morrell M.D. on 07/11/2021 at 14:59 ? ? Approved by: Richard Morrell M.D. on 07/11/2021 at 15:00 ? Extremity x-ray #2: Radiologist's Impression: PROCEDURE:? XR KNEE LT 3V ? INDICATIONS:? fall on left knee ? TECHNIQUE:? 3 views of the knee were acquired.? ? COMPARISON:? [facility], CR, XR KNEE RT 3V, 11/22/2020, 11:11. ? FINDINGS:? ? Bones:? No fractures or dislocations.? No suspicious bony lesions.? ? Soft tissues:? No joint effusion.? No suspicious soft tissue calcifications.? ? ? IMPRESSION:? Intact left knee. ? ? Dictated by: Juanita Alva M.D. on 07/11/2021 at 16:04 ? ? Approved by: Juanita Alva M.D. on 07/11/2021 at 16:05 ? MDM Narrative Medical decision making narrative: 56-year-old female presents to the emergency department after a ground level fall that occurred this morning while she was walking her dogs. Patient states that she tripped on a curb and fell forward impacting her left knee and falling out her outstretched right hand with right hand and left knee pain. No range of motion deficits, patient has an abrasion with ecchymosis to her left knee and no wound her right hand but some ecchymosis on the palmar aspec. No weakness. X-ray of her left hand shows no gross acute right hand fracture dislocation. She has moderate to severe 1st CMC joint osteoarthritis with [id number]-ebtixubp osteoarthritis throughout the rest of the right hand in restraints. Left knee x-ray shows no joint effusion, no suspicious soft tissue calcifications, intact left knee per Radiology read. Patient's tetanus was updated as she was unable to remember the last time she had a vaccination and no evidence of updated tetanus in the system. Wound Care to her left knee abrasion was completed by nursing, bacitracin with the Band-Aid was applied. Patient was fitted in a right Velcro wrist splint for immobilization of her hand due to the pain for comfort purposes. 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 She is able to bear weight and ambulate without deficit. Encouraged Ronnie bandage to her left knee, icing, Tylenol, ibuprofen starting tomorrow. Patient was given Tylenol in the emergency department, lidocaine patch, and she had Motrin just prior to arrival. Patient is appropriate and amenable to discharge home. Recommend close follow-up with primary care for physical therapy and advanced imaging if necessary. Vital signs are stable on repeat examination is unremarkable. Patient has been informed of results. Patient has been given strict return to ER precautions for any new or worsening symptoms. Patient understands to follow up closely with outpatient providers as instructed. Patient understands plan and agrees to discharge home. All questions and concerns answered at this time. Discharge Plan Departure Patient Disposition: Home Clinical Impression: Fall Qualifiers: Encounter type: initial encounter Qualified Code(s): W19.XXXA - Unspecified fall, initial encounter Hand sprain Qualifiers: Encounter type: initial encounter Laterality: right Qualified Code(s): S63.91XA - Sprain of unspecified part of right wrist and hand, initial encounter Knee abrasion Qualifiers: Encounter type: initial encounter Laterality: left Qualified Code(s): S80.212A - Abrasion, left knee, initial encounter Left knee sprain Qualifiers: Encounter type: initial encounter Involved ligament of knee: unspecified ligament Qualified Code(s): S83.92XA - Sprain of unspecified site of left knee, initial encounter Instructions: Knee Sprain, DI for Patellofemoral Pain Syndrome-Adult, DI for Knee Pain, DI for Hand Injury, How to Apply an Elastic Wrap on Knee Activity Restrictions/Additional Instructions: *You have been diagnosed with [a right hand sprain and a left knee sprain with some surrounding edema]. There is no fracture in your knee, no swelling within the joint on x-ray, and I do not suspect a ligamental injury. Please use an Ronnie wrap, ice, Tylenol, and ibuprofen as needed for your pain, I have given you some breakthrough pain medication call tramadol, you can take this in addition to those, I have also ordered diclofenac gel for your hand in your knee pain. Please do not take ibuprofen and the diclofenac gel as you could absorb too much NSAID. I hope starts feeling better soon, please follow-up with her primary care provider if you continue to have pain or ongoing issues from these injuries. Have a good day at school tomorrow. *What to do: *Please continue to take your regular medications as directed. [X ] New medication prescriptions sent to your pharmacy: [ [facility]] [ ] New medication written as a paper prescription [ ] No new medications given *Please follow up with your primary care provider in 2-3 days, call for an appointment. Let them know you were seen in the Emergency Department and that we ask that you be seen in follow up. We will electronically transmit a record of today's note if your PCP is in our system *If you do not have a primary care provider please contact the [facility] Resource line at [phone]. They will ask some questions about your medical history and help get you set up with a doctor in the community. *Return to Emergency Department if you should have any new, worsening or concerning symptoms, such as [fever greater than 101F, chills, worsening pain, persistent vomiting or other bothersome symptoms] Prescriptions: New tramadol 50 mg tablet 50 mg PO DAILY PRN (Reason: pain) Qty: 10 0RF diclofenac sodium [Voltaren Arthritis Pain] 1 % gel 4 g topical QID PRN (Reason: hand pain, knee pain) Qty: 100 0RF Rx Instructions: apply to single knee, ankle, foot; for foot includes sole/toes/top of foot No Action fluoxetine 10 mg tablet 10 mg PO DAILY 0RF bupropion HCl [Wellbutrin XL] 300 mg Tablet Extended Release 24 Hr 300 mg PO QAM 0RF Vyvanse 20 mg capsule 20 mg PO DAILY 0RF etodolac 400 mg tablet 400 mg PO PRN PRN (Reason: Pain (Scale Score 1-3)) 0RF tramadol 50 mg tablet 50 mg PO Q4H PRN (Reason: pain) Qty: 20 0RF Referrals: Rg Kern MD [Primary Care Provider] - <Deborah Urbina DO - Last Filed: 07/12/21 07:01> Cosign ED Attending Haileature Attestation: I was immediately available in the department for consultation. Documentation has been reviewed. I agree with assessment and plan.
[2021-07-11] MEDS: ACETAMINOPHEN 325 MG TABLET 975 MG PO (15:50)
[2021-07-11] MEDS: TET,DIPH,PERTUSS(ACELL),VAC/PF 0.5 ML SYRINGE IM (15:50)
[2021-07-11 16:06] VITALS: PULSE 75; O2SAT 98
[2021-07-11 16:07] VITALS: BP 113/71; PULSE 80; O2SAT 98
--- NOTE | 2021-07-11 16:09 | PC.NURSE ---
cleansed knee abrasion with sterile saline, xerofoam gauze and nonadherent on top secured with tape
[2021-07-11 16:25] VITALS: BP 113/71; PULSE 79; O2SAT 98
== END 2021-07-11 16:25 | disposition home or self-care (01) ==
PROVIDERS: Emergency Provider Nurse Practitioner Critical Care Medicine; PCP Family Medicine
DX: S63.91XA Sprain of unspecified part of right wrist and hand, initial encounter (principal); S83.92XA Sprain of unspecified site of left knee, initial encounter; S80.212A Abrasion, left knee, initial encounter; W01.0XXA Fall on same level from slipping, tripping and stumbling without subsequent striking against object, initial encounter; Z23 Encounter for immunization
CPT/HCPCS: 29260; 73130; 73562; 90471; 99283; 99284; 90715

== ENCOUNTER → 2021-12-14 12:56 | Outpatient (CLI) | payer OTHER, SELFPAY ==
--- NOTE | 2021-12-14 | DI.MG.S_ITS ---
BILATERAL DIGITAL SCREENING MAMMOGRAM 3D/2D WITH CAD WITH AUGMENTATION: 12/14/2021 CLINICAL: Patient presents for routine screening. S/P bilateral augmentation. Comparison is made to exams dated: 12/04/2017 mammogram - [facility], 03/12/2011 mammogram, and 04/29/2007 mammogram - [facility]. There are scattered fibroglandular elements in both breasts. Current study was also evaluated with a Computer Aided Detection (CAD) system. Bilateral breast implants are stable. No significant masses, calcifications, or other findings are seen in either breast. There has been no significant interval change. IMPRESSION: BENIGN There is no mammographic evidence of malignancy. A 1 year screening mammogram is recommended. Based on the Tyrer Cuzick model (a risk assessment model) the patient's lifetime risk is 6.3% and her 10 year risk is 1.8%. According to the ACR, ACS, and NCCN guidelines, an annual breast MRI exam along with mammogram is recommended if the patient's lifetime risk is 20% or greater. This exam was interpreted at Station ID: [id number]. NOTE: For mammograms, a report in lay terms will be sent to the patient. Approximately 15% of breast malignancies will not be visualized mammographically. In the management of a palpable breast mass, a negative mammogram must not discourage biopsy of a clinically suspicious lesion. Electronically Signed By: Lang hernandez/jose:12/14/2021 14:09:37 letter sent: Normal Exam ACR BI-RADS Category 2: Benign Finding(s) [id number]
== END ==
PROVIDERS: PCP Family Medicine; Referring Provider Family Medicine; Visit Provider Family Medicine
DX: Z12.31 Encounter for screening mammogram for malignant neoplasm of breast (principal); Z98.82 Breast implant status
CPT/HCPCS: 77063; 77067

== ENCOUNTER → 2022-06-24 09:51 | Outpatient (CLI) | payer OTHER, SELFPAY ==
--- NOTE | 2022-06-24 | DI.RAD.S_ITS ---
PROCEDURE: XR KNEE LT 3V INDICATIONS: left knee pain TECHNIQUE: 3 views of the knee were acquired. COMPARISON: [facility], RUPA, XR KNEE LT 3V, 07/11/2021, 15:43. [facility], CR, XR KNEE RT 3V, 11/22/2020, 11:11. FINDINGS: Bones: No displaced fracture. No dislocation. Mild arthrosis, with early osteophyte formation at the tibial spines. Soft tissues: Possible trace joint effusion. IMPRESSION: No acute radiographic abnormality. Mild arthrosis. If there is high concern for further derangement, consider MRI evaluation. Dictated by: Lang Kraus M.D. on 06/24/2022 at 10:46 Approved by: Lang Kraus M.D. on 06/24/2022 at 10:47
== END ==
PROVIDERS: PCP Family Medicine; Referring Provider Family Medicine; Visit Provider Family Medicine
DX: M17.12 Unilateral primary osteoarthritis, left knee (principal); M25.562 Pain in left knee
CPT/HCPCS: 73562

== ENCOUNTER → 2022-07-05 09:21 | Outpatient (CLI) | payer OTHER, SELFPAY ==
--- NOTE | 2022-07-05 | DI.MRI.S_ITS ---
PROCEDURE: MR KNEE LT WO CON INDICATIONS: Pain in left knee TECHNIQUE: Noncontrast sagittal PD fast spin echo and T2 fast spin echo with fat saturation, sagittal 3-D FLASH with fat saturation; coronal T1 spin echo and PD fast spin echo with fat saturation, and axial PD fast spin echo with fat saturation through the knee. COMPARISON: [facility], CR, XR KNEE LT 3V, 06/24/2022, 10:13. FINDINGS: Image quality: Excellent. Menisci: Amorphous high signal intensity within the posterior horn medial meniscus involving the peripheral 3rd is present demonstrating inferior articular surface extension, indicating degenerative tearing. There is radial tearing of the posterior horn medial meniscus at the meniscal root ligament insertion site. Medial extrusion of the medial meniscus is present. Lateral meniscus is intact. Cruciate ligaments: The anterior and posterior cruciate ligaments appear intact. Medial structures: The medial collateral ligament appears intact. Visualized portions of the pes anserinus tendons appear normal. Small amount of medial bursal fluid. Lateral structures: The lateral collateral ligament, long and short heads of the biceps femoris tendon appear intact. The popliteus tendon appears normal. Iliotibial band appears normal. Anterior structures: The quadriceps and patellar tendons appear intact. Mild T2 signal elevation within the quadriceps and patellar tendons at the patellar insertion sites. Patellar alignment is normal. No femoral trochlear dysplasia or ventral trochlear prominence. No edema in the infrapatellar fat pad. Bones and cartilage: No bone marrow contusions or fractures. Mild subchondral degenerative marrow edema within the posterior weight-bearing aspect of the medial tibial plateau. Mild tricompartmental periarticular osteophyte formation. Moderate articular cartilage loss diffusely overlies the weight-bearing aspects of the medial femoral condyle and medial tibial plateau. Moderate articular cartilage loss overlies the patellar apex and medial patellar facet. Joint space: There is a small knee joint effusion and a small Bowers's cyst. Normal appearing synovial plicae are incidentally noted. IMPRESSION: 1. Tricompartmental osteoarthritis with associated articular cartilage loss. 2. Medial meniscal tearing. 3. Knee joint effusion and Bowers's cyst. 4. Quadriceps and patellar tendinopathy. 5. Medial bursitis. Dictated by: Angelique Burns M.D. on 07/05/2022 at 9:55 Approved by: Angelique Burns M.D. on 07/05/2022 at 9:58
== END ==
PROVIDERS: PCP Family Medicine; Referring Provider Family Medicine; Visit Provider Family Medicine
DX: S83.242A Other tear of medial meniscus, current injury, left knee, initial encounter (principal); M71.22 Synovial cyst of popliteal space [Baker], left knee; M17.12 Unilateral primary osteoarthritis, left knee; M71.562 Other bursitis, not elsewhere classified, left knee; M25.462 Effusion, left knee; M25.562 Pain in left knee; G89.29 Other chronic pain
CPT/HCPCS: 73721

== ENCOUNTER → 2023-05-01 10:19 | Outpatient (CLI) | payer OTHER, SELFPAY ==
--- NOTE | 2023-05-01 | DI.US.S_ITS ---
PROCEDURE: US PELVIC COMPLETE INDICATIONS: Pelvic and perineal pain TECHNIQUE: Real-time scanning was performed of the pelvic organs, with image documentation. Additional endovaginal scanning was necessary due to incomplete visualization of the adnexal and endometrial structures by transabdominal scanning. COMPARISON: [facility], US, US PELVIC COMPLETE, 01/24/2021, 11:14. FINDINGS: Uterus: Uterus is anteverted and normal in size at 6.6 x 3.3 x 4.2 cm. The myometrium is homogeneous. The endometrium measures 4 mm combined thickness. Ovaries: The right ovary measures 2.7 x 1.4 x 1.5 cm, with a calculated ovarian volume of 2.9 cc. The left ovary measures 2.2 x 1.0 x 1.3 cm, with a calculated ovarian volume of 1.5 cc. A simple right ovarian cyst is seen measuring 1.5 x 1.1 x 1.0 cm. The ovaries otherwise have a normal sonographic appearance. Less than 12 follicles can be seen in each ovary. No adnexal masses are seen. Normal Doppler flow seen to each ovary. Other: No pathologic free abdominal or pelvic fluid. IMPRESSION: Simple right ovarian cyst measures up to 1.5 cm. Otherwise unremarkable pelvic ultrasound. Approved by: John Sanders M.D. on 05/01/2023 at 16:40
== END ==
PROVIDERS: PCP Family Medicine; Referring Provider Family Medicine; Visit Provider Family Medicine
DX: R10.2 Pelvic and perineal pain (principal); N83.292 Other ovarian cyst, left side
CPT/HCPCS: 76830; 76856; 93976

== ENCOUNTER → 2023-11-03 13:25 | Outpatient (CLI) | payer OTHER, SELFPAY ==
--- NOTE | 2023-11-03 13:28 | DI.RAD.S_ITS ---
PROCEDURE: XR ANKLE LT MIN 3V INDICATIONS: LEFT ANKLE PAIN TECHNIQUE: 3 views of the ankle were acquired. COMPARISON: None. FINDINGS: Bones: No fractures or dislocations. Ankle mortise is normally aligned. No suspicious bony lesions. Soft tissues: No tibiotalar joint effusion. Achilles tendon appears normal. IMPRESSION: No acute bony abnormality or significant effusion. Dictated by: Raheem Ordaz M.D. on 11/03/2023 at 18:50 Approved by: Raheem Ordaz M.D. on 11/03/2023 at 18:50
== END ==
PROVIDERS: PCP Family Medicine; Referring Provider Family Medicine; Visit Provider Family Medicine
DX: M25.572 Pain in left ankle and joints of left foot (principal)
CPT/HCPCS: 73610

== ENCOUNTER → 2024-04-12 14:39 | Outpatient (CLI) | payer OTHER, SELFPAY ==
--- NOTE | 2024-04-12 14:42 | DI.RAD.S_ITS ---
PROCEDURE: XR KNEE STANDING BI INDICATIONS: KNEE PAIN TECHNIQUE: 1 views of the knee(s) COMPARISON: [facility], CR, XR KNEE STANDING BILATERAL, 08/07/2022, 8:46. [facility], CR, XR KNEE LT 3V, 06/24/2022, 10:13. FINDINGS: Bones: No acute fractures or dislocations. There is moderate medial and mild to moderate lateral compartment narrowing. Ossification overlies the lateral joint space on right, unchanged. This may represent a loose body. Periarticular osteophytes are present. Subchondral lucency is present at the medial compartment on the right, unchanged. Soft tissues: No knee joint effusions. No suspicious soft tissue calcification. IMPRESSION: Overall appearance of mild to moderate bicompartmental arthritic change bilaterally, right greater than left. Subchondral lucency is present in the right medial compartment which could represent cysts or under appropriate clinical laboratory circumstances erosions. Dictated by: Brooke Bowen M.D. on 04/12/2024 at 23:04 Approved by: Brooke Bowen M.D. on 04/12/2024 at 23:05
--- NOTE | 2024-04-12 14:42 | DI.RAD.S_ITS ---
PROCEDURE: XR KNEE LT 1TO2V INDICATIONS: KNEE PAIN TECHNIQUE: 2 views of the knee were acquired. COMPARISON: [facility], , XR KNEE LT 3V, 06/24/2022, 10:13. FINDINGS: Bones: No fractures or dislocations. No suspicious bony lesions. Soft tissues: Minimal joint effusion. No suspicious soft tissue calcifications. IMPRESSION: Minimal effusion. No visualized acute fracture or dislocation. However, if clinical concern and/or pain persist, short interval imaging followup in 7-10 days is recommended, as occult injury cannot be definitively excluded. Dictated by: Brooke Bowen M.D. on 04/12/2024 at 23:03 Approved by: Brooke Bowen M.D. on 04/12/2024 at 23:03
--- NOTE | 2024-04-12 14:42 | DI.RAD.S_ITS ---
PROCEDURE: XR KNEE RT 1TO2V INDICATIONS: KNEE PAIN TECHNIQUE: 2 views of the knee were acquired. COMPARISON: [facility], CR, XR KNEE LT 3V, 06/24/2022, 10:13. FINDINGS: Bones: No fractures or dislocations. No suspicious bony lesions. Soft tissues: Minimal joint effusion. No suspicious soft tissue calcifications. IMPRESSION: Minimal effusion. No visualized acute fracture or dislocation. However, if clinical concern and/or pain persist, short interval imaging followup in 7-10 days is recommended, as occult injury cannot be definitively excluded. Dictated by: Brooke Bowen M.D. on 04/12/2024 at 23:03 Approved by: Brooke Bowen M.D. on 04/12/2024 at 23:04
== END ==
LOC: RAD 14:40
PROVIDERS: PCP Family Medicine; Referring Provider Family Medicine; Visit Provider Family Medicine
DX: M25.561 Pain in right knee (principal); M25.562 Pain in left knee; G89.29 Other chronic pain
CPT/HCPCS: 73560; 73565